=== PATIENT | male | born 1985 | race Caucasian/White ===

== ENCOUNTER 2020-05-20 07:59 | Outpatient (REF) | payer BC, SELFPAY | END 2020-05-20 08:00 | disposition home or self-care (01) | LOC: HO.HMGCLDS 07:59 | PROVIDERS: PCP Nurse Practitioner Family; Visit Provider Internal Medicine | DX: Z20.828 Contact with and (suspected) exposure to other viral communicable diseases (principal) | CPT/HCPCS: C9803; U0003 ==

== ENCOUNTER 2020-09-23 10:44 | Outpatient (REF) | payer BC, SELFPAY ==
--- NOTE | ~2020-09-23 | XR_ITS ---
EXAMINATION: XR KNEE, LEFT CLINICAL INFORMATION: Pain left knee. COMPARISON: None TECHNIQUE: Four views of the left knee. FINDINGS: There is no visible acute fracture, dislocation or subluxation seen. The soft tissues are normal. XR/XR knee LT 4V IMPRESSION: Unremarkable left knee exam.
== END 2020-09-23 10:45 | disposition home or self-care (01) ==
LOC: HO.HMGCX 10:44
PROVIDERS: PCP Nurse Practitioner Family; Visit Provider Nurse Practitioner Family
DX: M25.562 Pain in left knee (principal)
CPT/HCPCS: 73564

== ENCOUNTER 2020-10-22 15:00 | Outpatient (RCR) | payer BC, SELFPAY ==
--- NOTE | 2020-10-14 19:06 | MHC.PT.EP ---
[facility] [place] Office [place] Office [place] Office [address] [phone] F: [phone] F: [phone] F: [phone] F: [phone] Physical Therapy Plan of Care Date of Evaluation: 10/14/20 Date of Surgery: Diagnosis: Pain in L knee Assessment: Pt is a 35 y/o male referred to PT of eval and treat of L knee pain who presents with signs and Sx consistent with L patellofemoral dysfunction resulting in decreased tolerance for standing for long duration, sitting for duration, crossing his legs, performing biking and running fitness activities secondary to increased quad and hamstring tightness, mild L knee patella hypomobility, decreased L knee strength, mild decreased B hip strength, and pain . Pt is deemed an appropriate candidate to receive skilled PT in order to address his physical limitations to improve his functional ability. Frequency and Duration: The patient will be seen 2 x/wk x 5 wks. Short Term Goals: In 1 week: initiate HEP. Snf Goals: In 5 weeks: I with HEP. In 5 weeks: Pt will be able to stand > 1 hour with managed Sx. In 5 weeks: Pt will report managed Sx after bike or running exercise; initial 5-8/10 pain. Treatment Plan: Modalities to reduce pain, spasms and effusion. Manual therapy to restore motion and function. Therapeutic exercise to improve strength and flexibility. Neuromuscular re-education for posture and balance. Therapeutic activities to return to functional activities of daily living. Electronically signed by: Bj Jha PT. Please sign and return to therapist. Thank you for your referral.
--- NOTE | 2020-10-30 16:49 | MHC.PT.DC ---
[facility] [place] Office [place] Office [place] Office [address] [phone] F: [phone] F: [phone] F: [phone] F: [phone] Physical Therapy Discharge Report Diagnosis: Pain in L knee Date of Surgery: Date of Evaluation: 10/14/20 Date of Discharge: 10/30/20 Treatments to Date: 2 Cancellations to Date: 0 No Shows to Date: 0 Discharge Status: Patient Elected to Stop Discharge Summary: Pt limited by out of pocket PT obtained MRI for next steps and cancelled therapy after 2 visits. Electronically signed by: Bj Jha PT. Please sign and return to therapist. Thank you for your referral.
== END 2021-03-19 10:33 | disposition home or self-care (01) ==
LOC: HO.PTCHIC 15:00
PROVIDERS: PCP Nurse Practitioner Family; Visit Provider Nurse Practitioner Family
DX: M25.562 Pain in left knee (principal)
CPT/HCPCS: 97110; 97161

== ENCOUNTER 2020-10-31 07:06 | Outpatient (REF) | payer BC, SELFPAY ==
--- NOTE | ~2020-10-31 | MR_ITS ---
EXAMINATION: MR KNEE WITHOUT CONTRAST, LEFT CLINICAL INFORMATION: Left knee pain COMPARISON: None TECHNIQUE: MRI of the knee without contrast was performed using routine sequences on a high-field scanner. FINDINGS: MENISCI: Medial Meniscus: Intact Lateral Meniscus: Intact LIGAMENTS: Cruciate: Intact Collateral: Intact EXTENSOR MECHANISM: Intact ARTICULAR CARTILAGE/BONE: Patellofemoral Compartment: Normal Medial Compartment: Normal Lateral Compartment: Normal JOINT FLUID AND BURSAE: Normal MR/MR knee LT wo con IMPRESSION: Unremarkable examination. No internal derangement.
== END 2020-10-31 07:07 | disposition home or self-care (01) ==
LOC: HO.MRI 07:06
PROVIDERS: Visit Provider Nurse Practitioner Family
DX: M25.562 Pain in left knee (principal)
CPT/HCPCS: 73721

== ENCOUNTER → 2020-11-26 08:29 | Outpatient (BNVA) | payer BC, SELFPAY | PROVIDERS: PCP Nurse Practitioner Family; Visit Provider Physician Assistant ==

== ENCOUNTER 2021-07-18 13:23 | Outpatient (REF) | payer BC, SELFPAY ==
--- NOTE | ~2021-07-18 | XR_ITS ---
EXAMINATION: THORACIC AND CERVICAL SPINE CLINICAL INFORMATION: Pain. COMPARISON: None TECHNIQUE: 2 views thoracic spine. 3 views cervical spine. FINDINGS: Dorsal spine: There is normal thoracic kyphosis. The vertebral heights, alignment and disc heights are normal. No visible acute fracture, dislocation or lytic process seen. The paravertebral soft tissues are normal. Cervical spine: There is normal cervical lordosis. The vertebral heights, alignment and disc heights are normal. No visible acute fracture, dislocation or lytic process seen. The prevertebral soft tissues are normal. XR/XR cervical spine 2V IMPRESSION: Unremarkable dorsal spine exam Unremarkable cervical spine exam.
--- NOTE | ~2021-07-18 | XR_ITS ---
EXAMINATION: THORACIC AND CERVICAL SPINE CLINICAL INFORMATION: Pain. COMPARISON: None TECHNIQUE: 2 views thoracic spine. 3 views cervical spine. FINDINGS: Dorsal spine: There is normal thoracic kyphosis. The vertebral heights, alignment and disc heights are normal. No visible acute fracture, dislocation or lytic process seen. The paravertebral soft tissues are normal. Cervical spine: There is normal cervical lordosis. The vertebral heights, alignment and disc heights are normal. No visible acute fracture, dislocation or lytic process seen. The prevertebral soft tissues are normal. XR/XR thoracic spine 2V IMPRESSION: Unremarkable dorsal spine exam Unremarkable cervical spine exam.
== END 2021-07-18 13:24 | disposition home or self-care (01) ==
LOC: HO.HMGCX 13:23
PROVIDERS: PCP Nurse Practitioner Family; Visit Provider Nurse Practitioner Family
DX: M89.8X1 Other specified disorders of bone, shoulder (principal); M54.6 Pain in thoracic spine
CPT/HCPCS: 72040; 72070

== ENCOUNTER 2022-07-19 13:48 | Outpatient (REF) | payer BC, SELFPAY | END 2022-07-19 13:49 | disposition home or self-care (01) | LOC: HO.HMGCLDS 13:48 | PROVIDERS: PCP Nurse Practitioner Family; Visit Provider Nurse Practitioner Family | DX: Z01.83 Encounter for blood typing (principal) | CPT/HCPCS: 86900; 86901 ==

== ENCOUNTER 2023-04-04 08:37 | Outpatient (AMB) | payer BC, SELFPAY ==
--- NOTE | 2023-04-04 08:48 | MHC.OFFWIV ---
Intake Vital Signs 04/04/23 08:51 Height 6 ft 3 in Weight 180 lb BMI 22.5 BP 122/78 Blood Pressure Location Rt brachial Position Sitting Pulse 91 Pulse Source Pulse Oximeter Temp 97.8 F Temp Source Temporal Artery Scan Pulse Oximetry (%) 95 Oxygen Delivery Method Room Air Intake Visit Reasons: EP COVID + 04/03/23 Intake Note: Pt is here c/o testing positive for COVID and wants paxlovid. Patient Tobacco Use Status: Never used Tobacco Allergies No Known Allergies [No Known Allergies*] Allergy (Verified 04/04/23 09:16) Medication List - Last Reconciled 04/04/23 by Donis Villeda MD clonazepam 0.5 mg PO DAILY PRN 30 days Do you need a note to return to daycare/school/sports/work: Yes HPI EP COVID + 04/03/23 HPI Details 37-year-old male presents to the office for a sick visit. Patient is on paternal even and has a 2-month-old . He started having symptoms of upper respiratory tract infection, postnasal drip and headache. He tested twice with home COVID test and was positive on both. Patient is wondering if he is eligible for any medication [facility] Medical History GERD (gastroesophageal reflux disease) Anxiety ADD (attention deficit disorder) Surgical History No pertinent past surgical history Family History Mother HTN (hypertension) Father No problems noted. Maternal Grandmother No problems noted. Maternal Grandfather Myocardial infarction Paternal Grandmother HTN (hypertension) Paternal Grandfather Colon cancer Social History Housing: House Alcohol intake: never Patient Tobacco Use Status: Never used Tobacco e-Cigarette/Vaping Use: Never Used Second Hand Smoke Exposure: No service: No Current occupational status: employed Current occupation: [employer] Current occupational exposures/hazards: No Cognitive needs: No Hearing needs: No Vision needs: No Physical Exam Vital Signs: Last Vital Signs Temp 97.8 F 04/04/23 08:51 Pulse 91 04/04/23 08:51 BP 122/78 04/04/23 08:51 Pulse Ox 95 04/04/23 08:51 Oxygen Delivery Method Room Air 04/04/23 08:51 BMI result Body Mass Index 22.5 Const General: cooperative and healthy appearing Nutritional Appearance: well nourished Orientation/consciousness: patient oriented x3 Limitations: no limitations HEENT Head: Yes normal to inspection Eyes General: appearance normal, both eyes and all related structures Neck Neck: Yes normal visual inspection Chest Chest palpation & inspection: normal palpation of entire chest wall Resp Effort & Inspection: normal respiratory effort Neuro General: patient oriented x3 Assessment & Plan Assessment & Plan (1) Upper respiratory tract infection: Code(s): J06.9 - Acute upper respiratory infection, unspecified Plan: Increase fluid intake. No antibiotics needed. Patient was advised to follow quarantine for 5 days and use a mask for 5 more days. In my professional opinion, Paxlovid is not needed. It is a mild illness and should resolve on its own. Should symptoms worsen in the next 24 hours, patient was advised to call and a prescription for Paxlovid will be given. Coding Level of Care Code Est Pt Level 3 (63922) Diagnoses Upper respiratory tract infection J06.9
[2023-04-04 08:51] VITALS: BP 122/78; PULSE 91; TEMP 36.6; O2SAT 95; BMI 22.5
== END 2023-04-04 09:25 | disposition home or self-care (01) ==
PROVIDERS: PCP Nurse Practitioner Family; Visit Provider Internal Medicine
DX: J06.9 Acute upper respiratory infection, unspecified (principal)
CPT/HCPCS: 99213

== ENCOUNTER 2023-10-25 11:34 | Outpatient (AMB) | payer BC, SELFPAY ==
--- NOTE | 2023-10-25 11:38 | MHC.PC.OV ---
Vital Signs 10/25/23 11:40 Height 6 ft 3 in Weight 184 lb BMI 23.0 BP 112/70 Blood Pressure Location Rt brachial Position Sitting Pulse 60 Pulse Source Pulse Oximeter Pulse Oximetry (%) 99 Oxygen Delivery Method Room Air Intake Visit Reasons: Annual PE Intake Note: Patient here for physical exam. Allergies No Known Allergies [No Known Allergies*] Allergy (Verified 10/25/23 12:37) Medication List - Last Reconciled 10/25/23 by LATONYA Sheridan clonazepam 0.5 mg PO DAILY PRN 30 days valacyclovir 2,000 mg (2 x 1 gram) PO BID PRN 1 day Tobacco use date assessed: 10/25/23 Dental Screening Dental Screen Date: 10/25/23 Did you have a dental visit in the last 12 months?: Yes Did you have a dental problem in the last 6 months where you did not have access to dental care?: No Was dental information given to patient?: Patient has dentist HPI Annual PE HPI Details Pt is here for a PE. Will order labs. COUNTS INCLUDE 234 BEDS AT THE [facility] Medical History GERD (gastroesophageal reflux disease) Anxiety ADD (attention deficit disorder) Surgical History No pertinent past surgical history Family History Mother HTN (hypertension) Father No problems noted. Maternal Grandmother No problems noted. Maternal Grandfather Myocardial infarction Paternal Grandmother HTN (hypertension) Paternal Grandfather Colon cancer Social History Housing: House Alcohol intake: never Patient Tobacco Use Status: Never used Tobacco e-Cigarette/Vaping Use: Never Used Second Hand Smoke Exposure: No service: No Current occupational status: employed Current occupation: [employer] Current occupational exposures/hazards: No Cognitive needs: No Hearing needs: No Vision needs: No Review of Systems Const Denies chills and Denies fever(s) Eyes Denies blurry vision ENT Denies vertigo, Denies dizziness and Denies sore throat Card Denies chest pain at rest, Denies chest pain with activity, Denies diaphoresis, Denies dyspnea and Denies dyspnea on exertion Resp Denies cough, Denies dyspnea, Denies dyspnea on exertion and Denies wheezing GI Denies abdominal pain, Denies melena, Denies hematochezia, Denies constipation, Denies diarrhea and Denies loose stools Denies hematuria Musc Denies numbness and Denies tingling Skin/Breast Denies lesions Neuro Denies vertigo, Denies dizziness, Denies numbness and Denies tingling Psych Denies anxiety, Denies depression, Denies homicidal ideation, Denies suicidal ideation and Denies other (substance abuse) Aller/Immun Denies wheezing Physical exam (Primary Care) Vital Signs: Last Vital Signs Pulse 60 10/25/23 11:40 BP 112/70 10/25/23 11:40 Pulse Ox 99 10/25/23 11:40 Oxygen Delivery Method Room Air 10/25/23 11:40 BMI result Body Mass Index 23.0 Tobacco/Smoking Status: Tobacco use Status Tobacco use date assessed 10/25/23 10/25/23 11:43 Patient Tobacco Use Status Never used Tobacco 10/25/23 11:43 e-Cigarette/Vaping Use Never Used 10/25/23 11:43 Const General: cooperative Nutritional Appearance: well nourished Orientation/consciousness: patient oriented x3 HENMT Head: Yes normal to inspection, Yes normocephalic and Yes atraumatic Ears: TM's normal bilaterally Eyes General: appearance normal, both eyes and all related structures Alignment and Position: alignment normal and position normal Neck Other: ? enlarged thyroid. Neck: Yes normal visual inspection and Yes no lymphadenopathy Resp Effort & Inspection: normal respiratory effort Auscultation: clear to auscultation bilaterally Cardio Rate: regular rate Rhythm: regular rhythm Heart sounds: S1 normal heart sound present, S2 normal heart sound present and no murmurs GI Palpation (GI): Soft to palpation and nontender Auscultation: normal bowel sounds Male General Exam: Yes normal external exam Penis: normal penis Scrotum: scrotum normal, testes descended bilaterally and no inguinal hernias Testes: no testicular mass Skin Rashes: no rashes Neuro General: patient oriented x3, moves all extremities, no focal motor deficits and deep tendon reflexes 2+ bilaterally Romberg Test: Negative Psych Appearance: grossly normal Mental Status: mental status grossly normal Speech and movement: Normal speech and movement present Affect: normal affect Attitude: cooperative Thought process: Normal thought process present Thought content: Normal thought content present Insight: Good insight present (Psych) Judgement: Good judgement present (Psych) Assessment and Plan Assessment & Plan (1) Physical exam: Code(s): Z00.00 - Encounter for general adult medical examination without abnormal findings (2) Enlarged thyroid: Code(s): E04.9 - Nontoxic goiter, unspecified Plan: US of thyroid ordered Orders: Orders Complete Blood Count Auto Diff Today Z00.00 - Encounter for general adult medical examination without abnormal findings Comprehensive [place]. Panel Fast Today Z00.00 - Encounter for general adult medical examination without abnormal findings UA CC w/rflx Micro + Cult Today Z00.00 - Encounter for general adult medical examination without abnormal findings Lipid Panel Today Z00.00 - Encounter for general adult medical examination without abnormal findings TSH reflex Free T4 Today Z00.00 - Encounter for general adult medical examination without abnormal findings US thyroid Today E04.9 - Nontoxic goiter, unspecified Coding Level of Care Code Est Pt Prev Care 18-39y(81077) Diagnoses Physical exam Z00.00 Enlarged thyroid E04.9
[2023-10-25 11:40] VITALS: BP 112/70; PULSE 60; O2SAT 99; BMI 23.0
== END 2023-10-25 17:11 | disposition home or self-care (01) ==
PROVIDERS: Visit Provider Nurse Practitioner Family
DX: Z00.00 Encounter for general adult medical examination without abnormal findings (principal); E04.9 Nontoxic goiter, unspecified
CPT/HCPCS: 99395

== ENCOUNTER 2023-11-09 08:29 | Outpatient (REF) | payer BC, SELFPAY ==
--- NOTE | ~2023-11-09 | US_ITS ---
EXAMINATION: US THYROID CLINICAL INFORMATION: Nontoxic goiter, unspecified. COMPARISON: None available. TECHNIQUE: Linear transducer grayscale and color Doppler examination with attention to the region of the thyroid. FINDINGS: SIZE: Measurements of the thyroid lobes and nodules are given in sagittal, anteroposterior and transverse dimensions respectively. Right Thyroid Lobe: 5.2 x 1.2 x 1.5 cm, volume 4.9 mL. Parenchyma: The gland echotexture is homogeneous. Thyroid vascularity is normal. Left Thyroid Lobe: 5.0 x 1.4 x 1.4 cm, volume 4.9 mL. Parenchyma: The gland echotexture is homogeneous. Thyroid vascularity is normal. Isthmus: 0.3 cm in maximum AP dimension. No focal thyroid nodule is seen. NODES: No lymphadenopathy is seen in the tissue surrounding the thyroid gland. US/US thyroid IMPRESSION: Normal thyroid ultrasound. ACR TI-RADS RECOMMENDATION REFERENCE: Ultrasound-guided fine-needle aspiration, followup ultrasound, no further follow up. * TR1 (0 point) and TR2 (2 points): No FNA or follow up. * TR3 (3 points): FNA if more than or equal to 2.5 cm in maximum dimension, followup ultrasound in 1, 3 and 5 years if 1.5 to 2.4 cm in maximum dimension. * TR4 (4-6 points): FNA if more than or equal to 1.5 cm in maximum dimension, followup ultrasound in 1, 2, 3 and 5 years if 1 to 1.4 cm in maximum dimension. * TR5 (more than or equal to 7 points): FNA if more than or equal to 1 cm in maximum dimension, followup ultrasound every year for 5 years if 0.5 to 0.9 cm in maximum dimension. * TR3, TR4 or TR5 nodules that are below the size threshold for followup receive no follow up.
== END 2023-11-09 08:30 | disposition home or self-care (01) ==
LOC: HO.HMGCX 08:29
PROVIDERS: PCP Nurse Practitioner Family; Visit Provider Nurse Practitioner Family
DX: E04.9 Nontoxic goiter, unspecified (principal)
CPT/HCPCS: 76536

== ENCOUNTER 2025-05-15 08:02 | Outpatient (AMB) | payer BC, SELFPAY ==
--- NOTE | 2025-05-15 08:03 | MHC.PC.OV ---
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 Accompanied by: Self / Same As Patient Allergies No Known Allergies (No Known Allergies*) Allergy (Verified 05/15/25 08:06) Tobacco use date assessed: 05/15/25 Dental Screening Dental Screen Date: 05/15/25 Did you have a dental visit in the last 12 months?: Yes Did you have a dental problem in the last 6 months where you did not have access to dental care?: No Was dental information given to patient?: Yes HPI Followup meds HPI Details History of Present Illness The patient is a 39-year-old male presenting for evaluation of left knee pain and discussion of family history of Hereditary Hemorrhagic Telangiectasia (HHT) and a physical exam The patient reports ongoing left knee pain which began years ago during his time in the [employer] [facility] when he felt a pop in his knee while on his knees (2017 approx). Since that time, he has experienced significant discomfort, which he describes as a generalized pain mostly inside the knee, pointing to the anterior aspect. He denies any swelling. There is a strong family history of Hereditary Hemorrhagic Telangiectasia (HHT), although the patient has not been confirmed to have this condition. The patient reports a history of frequent epistaxis in the spring but has had no episodes since then. He is scheduled to follow up with a provider in [place] for further testing. The patient reports he has already had labs drawn at a different facility. Health Maintenance - The patient is scheduled for further testing with a [place] provider regarding a family history of HHT. - Recent lab work was completed at an outside facility. Social History - The patient has a history of being in a [employer] [facility]. Review of Systems - HEENT: Reports history of frequent nosebleeds in the spring, but denies any recent episodes. - Musculoskeletal: Reports ongoing pain in the left knee, localized to the inside and anterior aspect. - Denies swelling in the left knee. -denies any cp, sob, n/v, si or hi, abd pain Physical Exam General: Cooperative, healthy appearing, comfortable, no acute distress and well developed Orientation: Patient oriented x3 Limitations: No limitations Head: Normal to inspection Ears: Hearing grossly normal bilaterally Nose: Normal external nose present Face and sinus: Normal facial exam Eyes: Appearance normal, both eyes and all related structures Neck: Normal visual inspection and Yes full ROM Respiratory: Normal respiratory effort and able to speak in complete sentences. Clear to auscultation bilaterally Cardiovascular: Regular rate and rhythm. Normal S1 and S2 GI: Normal to inspection. Soft to palpation and nontender : testicles without masses/lesions and no hernias appreciated Skin: No rashes or lesions noted Neuro: Patient oriented x3 Extremities: Normal to inspection, but patient reports ongoing left knee pain with generalized pain inside mostly, pointing to the anterior aspect. No active crepitus noted, negative Ronda, negative Carlos's. Results - Labs: The patient reports having recent labs drawn at a different facility. Plan 1. Left Knee Pain The patient reports chronic left knee pain following a pop sensation years ago. Physical exam today is negative for active crepitus, and special tests including Ronda and Carlos's are negative. An x-ray will be obtained for further evaluation, and physical therapy may be considered in the future. 2. Family History Of Hereditary Hemorrhagic Telangiectasia The patient has a strong family history of HHT but has not been personally diagnosed. Given his history of frequent epistaxis in the past, he will proceed with his plan to follow up with a specialist in [place] for further testing. An attempt will be made to track down his recent lab results from an outside facility. Discussion Notes I discussed the patient's chronic left knee pain, noting that while the exam was reassuring today, an x-ray is a reasonable next step for evaluation. I advised that physical therapy might be needed in the future. We also reviewed his strong family history of HHT and I supported his plan to follow up with a specialist in [place] for definitive testing. I informed him I would attempt to obtain his recent lab results from the other facility for review. Patient Instructions - Please get an X-ray of your left knee. - We will discuss physical therapy for your knee pain in the future if needed. - Continue with your plan to see the doctor in [place] for testing related to your family's medical history. - We will try to get the results of the recent blood tests you had at the other clinic. [facility] [place] [place] Medical History Lyme disease GERD (gastroesophageal reflux disease) Anxiety ADD (attention deficit disorder) Surgical History No pertinent past surgical history Family History Mother HTN (hypertension) Father No problems noted. Maternal Grandmother No problems noted. Maternal Grandfather Myocardial infarction Paternal Grandmother HTN (hypertension) Paternal Grandfather Colon cancer Social History Housing: House Alcohol intake: never Patient Tobacco Use Status: Never used Tobacco e-Cigarette/Vaping Use: Never Used Second Hand Smoke Exposure: No service: No Current occupational status: employed Current occupation: [employer] Current occupational exposures/hazards: No Cognitive needs: No Hearing needs: No Vision needs: No Questionnaire PHQ-9 Over the last 2 weeks, how often have you been bothered by any of the following problems? 1. Little interest or pleasure in doing things: not at all 2. Feeling down, depressed, or hopeless: not at all 3. Trouble falling or staying asleep, or sleeping too much: not at all 4. Feeling tired or having little energy: not at all 5. Poor appetite or overeating: not at all 6. Feeling bad about yourself - or that you are a failure or have let yourself or your family down: not at all 7. Trouble concentrating on things, such as reading the newspaper or watching television: not at all 8. Moving or speaking so slowly that other people could have noticed. Or the opposite - being so fidgety or restless that you have been moving around a lot more than usual: not at all 9. Thoughts that you would be better off or of hurting yourself in some way: not at all Total score: 0 Depression Screening Interpretation: Negative Depression Screening Done: Yes 68659 - PHQ-9 Billing: Patient declined-do not bill Source: Developed by Drs. Scotty Santillan, Aurelia Elliott, Cezar Zheng and colleagues, with an educational pamela from [employer]. Thrive Questionnaire Date Thrive assessed: 05/15/25 I am a: Patient What is your living situation today?: I have a steady place to live Within the past 12 months, did the food you bought not last and you didn't have the money to get more?: Never true Within the past 12 months, did you worry whether your food would run out before you got money to buy more?: Never true Do you have trouble paying for medicines?: No Do you have trouble getting transportation to medical appointments?: No Do you have trouble paying your heating and electricity bill?: No Do you have trouble taking care of your child, family member or friend?: No Do you have trouble with day-to-day activities such as bathing, preparing meals, shopping, managing finances, etc.?: No Are you currently unemployed and looking for a job?: No Are you interested in more education?: No THRIVE Score: 0 AUDIT C Alcohol Use Questionnaire (AUDIT-C) 1. How often do you have a drink containing alcohol?: Monthly or less 2. How many drinks containing alcohol do you have on a typical day when you are drinking?: 1 or 2 3. How often do you have six or more drinks on one occasion?: Never Total Score: 1 Score Reviewed/Action Taken: Yes XANDER-7 AMB Questionnaire XANDER-7 Date XANDER - 7 assessed: 05/15/25 Feeling nervous, anxious, or on edge: 0 = Not at all Not being able to stop or control worryin = Not at all Worrying too much about different things: 0 = Not at all Trouble relaxin = Not at all Being so restless that it is hard to sit still: 0 = Not at all Becoming easily annoyed or irritable: 0 = Not at all Feeling afraid as if something awful might happen: 0 = Not at all Total XANDER-7 score (0-4 normal; 5-9 mild; 10-14 moderate; 15-21 severe): 0 Source: Developed by Drs. Scotty Santillan, Aurelia Elliott, Cezar Zheng and colleagues, with an educational pamela from [employer] XANDER-7 Assessment Billing XANDER-7 Assessment Tool: XANDER-7 Assessment 18530 Physical exam (Primary Care) Vital Signs: Last Vital Signs Temp 98.1 F 05/15/25 08:04 Pulse 65 11/05/25 08:04 Resp 16 05/15/25 08:04 BP 112/70 05/15/25 08:04 Pulse Ox 97 05/15/25 08:04 Oxygen Delivery Method Room Air 05/15/25 08:04 BMI result Body Mass Index 23.1 Tobacco/Smoking Status: Tobacco use Status Tobacco use date assessed 05/15/25 05/15/25 08:10 Patient Tobacco Use Status Never used Tobacco 05/15/25 08:10 e-Cigarette/Vaping Use Never Used 05/15/25 08:10 PHQ-9: PHQ-9 Score PHQ-9: Total score 0 05/15/25 08:10 Depression Screening Interpretation: Negative Thrive Assessment: Date of Thrive Assessment Date Thrive assessed 05/15/25 05/15/25 08:10 Coding Level of Care Code Est Pt Level 3 (90997) Est Pt Prev Care 18-39y(36995) Diagnoses Left knee pain M25.562 Physical exam Z00.00 Epistaxis R04.0 Additional Codes XANDER-7 Assessment Billing - XANDER-7 Assessment Tool: XANDER-7 Assessment 63236 ([id number]) Assessment & Plan Assessment & Plan (1) Left knee pain: Code(s): M25.562 - Pain in left knee Category: Medical (2) Physical exam: Code(s): Z00.00 - Encounter for general adult medical examination without abnormal findings Category: Medical (3) Epistaxis: Code(s): R04.0 - Epistaxis Category: Medical Plan . Orders: Orders XR knee LT 2V Today M25.562 - Pain in left knee
[2025-05-15 08:04] VITALS: BP 112/70; PULSE 65; RESP 16; TEMP 36.7; O2SAT 97; BMI 23.1
--- OUTSIDE RECORDS SUMMARY | 2025-05-15 08:10 | XMS_ITS | Patient Health Record ---
Author Organization [facility] Address [address] [place] [address] Care Team Providers Care Power Barker Operator Name Role Phone BALWINDER SCHMID Primary Care Provider Sj Adam Jr Unavailable Allergies Allergen (clinical drug ingredient) Drug/Non Drug Allergy documented on EMR Reaction Allergy Type Onset Date Status seasonal (uncoded) Unknown Allergy A ctive Reason For Referral No Information Medications Medication SIG (Take, Route, Frequency, Duration) Notes Start Date End Date Status KlonoPIN 0.5 MG 1 tablet Orally prn Active Hyoscyamine Sulfate ER 0.375 MG 1 tablet Orally every 12 hrs; Duration: 30 day(s) 01/09/2015 Active Pantoprazole Sodium 40 MG 1 tablet Orall y Once a day; Duration: 30 day(s) 03/14/2015 Active Suprep Bowel Prep 1 as directed Orally 1 ; Duration: 1 dose 05/23/2015 Active Problems Problem Type SNOMED Code ICD Code Onset Dates Problem Status W/U Status Risk Notes Problem Esophageal reflux (542894356) Esophageal reflux (530.81) Active confirmed Problem Diarrhea (31903102) Diarrhea (787.91) Active confirmed Problem Abdominal pain (29952695) Abdominal pain (789.00) Active confirmed Plan Of Treatment No Information Insurance Providers Payer Name Payer Address Payer Phone Subscriber Number Group Number Insured Name Patient Relationship to Insured Coverage Start Date Coverage End Date [employer] PROF[employer] CLAIMS [address] [place] [address] [id number] Self - patient is the insured Medical (General) History Medical History History ICD Code esophageal reflux
== END 2025-05-15 08:31 | disposition home or self-care (01) ==
LOC: HO.HMCC 08:03
PROVIDERS: PCP Nurse Practitioner Family; Visit Provider Nurse Practitioner Family
DX: Z00.00 Encounter for general adult medical examination without abnormal findings (principal); M25.562 Pain in left knee; R04.0 Epistaxis

== ENCOUNTER 2025-05-15 08:02 | Outpatient (REF) | payer BC, SELFPAY ==
--- NOTE | ~2025-05-15 | XR_ITS ---
EXAMINATION: XR KNEE, LEFT CLINICAL INFORMATION: M25.562 - Pain in left knee COMPARISON: X-ray 09/23/2020 TECHNIQUE: Four views of the left knee. FINDINGS: No fracture or joint effusion. Alignment is anatomic. Joint spaces are maintained. No abnormal soft tissue calcification. Stable 1.0 cm sclerotic focus in the proximal tibial metaphysis. XR/XR knee LT 2V IMPRESSION: No acute findings Electronically signed by: Mukul Yost MD 05/15/2025 09:19 AM [facility]
== END 2025-05-15 08:03 | disposition home or self-care (01) ==
LOC: HO.HMGCX 08:02
PROVIDERS: PCP Nurse Practitioner Family; Visit Provider Nurse Practitioner Family
DX: Z00.00 Encounter for general adult medical examination without abnormal findings (principal); M25.562 Pain in left knee; R04.0 Epistaxis
CPT/HCPCS: 73560; 96127

== ENCOUNTER → 2025-05-15 09:04 | Outpatient (BNV) | payer BC, SELFPAY | PROVIDERS: PCP Nurse Practitioner Family; Visit Provider Radiology Diagnostic Ultrasound | DX: M25.562 Pain in left knee (principal) | CPT/HCPCS: 73560 ==

== ENCOUNTER 2025-06-25 14:47 | Outpatient (REF) | payer BC, SELFPAY ==
--- NOTE | ~2025-06-25 | CT_ITS ---
EXAMINATION: CT ABDOMEN AND PELVIS WITHOUT AND WITH CONTRAST CLINICAL INFORMATION: Microscopic hematuria COMPARISON: None available. TECHNIQUE: Noncontrast CT of the abdomen and pelvis is performed followed by split bolus contrast-enhanced images using 85 mL Omnipaque 350 contrast. Postcontrast imaging is performed during the combined nephrogram and excretion phase. Sagittal and coronal reformatted images were obtained on the technologist's workstation for both the precontrast and postcontrast phases. This CT examination was performed using dose optimization techniques as appropriate, variously including the following: *Automated exposure control *Adjustment of mA and/or kV according to patient size (this includes techniques or standardized protocols for targeted exams where dose is matched to indication/reason for exam; i.e. extremities or head) *Use of iterative reconstruction technique FINDINGS: LUNG BASES: Mild left basilar atelectasis. LIVER, GALLBLADDER, AND BILIARY TREE: No focal hepatic lesion or biliary ductal dilatation is present. The gallbladder is partially distended with no evidence of radiopaque gallstones, gallbladder wall thickening, or obvious pericholecystic inflammatory changes. PANCREAS: Unremarkable. SPLEEN: Unremarkable. ADRENAL GLANDS: Unremarkable. KIDNEYS AND URETERS: On the noncontrast phase, there are 2 punctate densities in the midpole of the right kidney. No left renal calculi identified. No ureteral calculi. No hydronephrosis. Bilateral kidneys are normal in shape, size and attenuation. On the postcontrast sequences, there is symmetric enhancement of bilateral kidneys. No suspicious renal lesions. There is contrast enhancing bilateral renal pelvis and the ureters. No hydronephrosis. No filling defects identified. No perinephric stranding. BLADDER: Partially distended on the noncontrast phase. No intraluminal calculi seen. No mass lesion is identified. GASTROINTESTINAL TRACT: Prominent luminal contents in the stomach. Nonobstructive bowel gas pattern. No acute bowel findings seen... The appendix is unremarkable. Mesentery: No mesenteric edema. No ascites. No pneumoperitoneum. No fluid collections. ABDOMINAL WALL: Tiny fat-containing umbilical hernia LYMPH NODES: No pathologically enlarged lymph nodes is seen. VASCULAR: Normal caliber aorta PELVIC VISCERA: Unremarkable. OSSEUS STRUCTURES: No destructive bony lesion CT/CT urogram IMPRESSION: * 2 punctate densities in the midpole right kidney, suggestive of nonobstructing calculi. No ureteral calculi. No hydronephrosis. No suspicious renal lesion seen. No filling defects in the ureter or bladder is identified. * Additional findings and details as above Electronically signed by: Mukul Yost MD 06/26/2025 08:59 AM [facility]
[2025-06-25 15:45] LABS: MANUAL DIFF FLAG NO
[2025-06-25 16:11] LABS: Appearance Urine Clear; Glucose Urine UA Negative (Negative); PH 8.0 (5.0-9.0); Specific Gravity - Urine >= 1.030 (1.005-1.025); UMIC TRIGGER UACC YES
[2025-06-25 16:14] LABS: Hematocrit 44.4 % (42.0-52.0); Hemoglobin 15.0 g/dl (14.0-18.0); Imm Gran Abs Auto 0.02 X10*3/uL (0.00-0.03); Imm Gran Pct Auto 0.3 % (0.0-0.4); Lymphocytes Absolute Auto 2.4 X10*3/uL (1.2-4.9); Mean Corpuscular HGB Conc 33.8 g/dl (31.0-36.0); Mean Corpuscular Hemoglobin 29.6 pg (27.0-33.0); Mean Corpuscular Volume 87.6 fL (80.0-98.0); NRBC Abs Auto 0.000 X10*3/uL (0.0-0.012); NRBC Pct Auto 0.0 /100WBC (0.0-0.2); Platelet Count 280 X10*3/uL (160-400); Red Blood Count 5.07 X10*6/uL (4.60-5.80); White Blood Count 7.4 X10*3/uL (4.8-10.8)
[2025-06-25] MEDS: iohexoL 350 MG/ML 100 ML INFUS..BTL IV (16:26)
[2025-06-25 16:34] LABS: Alanine Aminotransferase 53 U/L (0-40); Albumin Level 4.9 g/dL (3.5-5.0); Alkaline Phosphatase 66 U/L (39-117); Anion Gap 11 (12-20); Aspartate Amino Transferase 35 U/L (5-37); Blood Urea Nitrogen 13 mg/dL (9-16); Calcium 9.9 mg/dL (8.4-10.2); Carbon Dioxide 32 mmol/L (22-29); Chloride 102 mmol/L (96-108); Cholesterol 188 mg/dL (<200); Estimated Glomerular Filt Rate > 60; HDL Cholesterol 50 mg/dL (>40); Potassium 4.6 mmol/L (3.3-5.1); Sodium 140 mmol/L (135-145); Total Protein 7.6 g/dL (6.5-8.0); Triglycerides 263 mg/dL (<150)
--- OUTSIDE RECORDS SUMMARY | 2025-06-25 19:07 | XMS_ITS | Patient Health Record ---
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 Name Role Phone BALWINDER SCHMID Primary Care Provider Sj Adam Jr Unavailable [phone] Allergies Allergen (clinical drug ingredient) Drug/Non Drug Allergy documented on EMR Reaction Allergy Type Onset Date Status seasonal (uncoded) Unknown Allergy A ctive Reason For Referral No Information Medications Medication SIG (Take, Route, Frequency, Duration) Notes Start Date End Date Status KlonoPIN 0.5 MG Tablet 1 tablet Orally prn Active Hyoscyamine Sulfate ER 0.375 MG Tablet Extended Release 12 Hour 1 tablet Orally every 12 hrs; Duration: 30 day(s) 01/09/2015 Active Pantoprazole Sodium 40 MG Tablet Delayed Release 1 tablet Orally Once a day; Duration: 30 day(s) 03/14/2015 Active Suprep Bowel Prep 1 Solution as directed Orally 1; Duration: 1 dose 05/23/2015 Active Social History Social History Additional Details Category Social Info Options Details Miscellaneous: Marital status: single 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 Problems Problem Type SNOMED Code ICD Code Onset Dates Problem Status W/U Status Risk Notes Problem Esophageal reflux (418484152) Esophageal reflux (530.81) Active confirmed Problem Diarrhea (63564773) Diarrhea (787.91) Active confirmed Problem Abdominal pain (07328465) Abdominal pain (789.00) Active confirmed Plan Of Treatment No Information Insurance Providers Payer Name Payer Address Payer Phone Subscriber Number Group Number Insured Name Patient Relationship to Insured Coverage Start Date Coverage End Date [facility] PROFESSIONAL CLAIMS [address] [place] [address] [id number] Self - patient is the insured Medical (General) History Medical History History ICD Code esophageal reflux
== END 2025-06-25 14:48 | disposition home or self-care (01) ==
LOC: HO.CT 14:47
PROVIDERS: PCP Nurse Practitioner Family; Visit Provider Nurse Practitioner Family
DX: Z00.00 Encounter for general adult medical examination without abnormal findings (principal); R31.29 Other microscopic hematuria; Z13.0 Encounter for screening for diseases of the blood and blood-forming organs and certain disorders involving the immune mechanism; Z13.21 Encounter for screening for nutritional disorder; Z13.6 Encounter for screening for cardiovascular disorders
CPT/HCPCS: 36415; 74178; 80053; 80061; 81001; 81003; 82306; 84443; 85025; 87086; 88112; Q9967

== ENCOUNTER → 2025-06-25 14:51 | Outpatient (BNV) | payer BC, SELFPAY | PROVIDERS: PCP Nurse Practitioner Family; Visit Provider Radiology Diagnostic Ultrasound | DX: R31.29 Other microscopic hematuria (principal) | CPT/HCPCS: 74178 ==